=== PATIENT | male | born 1985 | race Caucasian/White ===

== ENCOUNTER 2016-12-31 21:35 | Emergency (ER) ==
[2016-12-31 21:39] VITALS: BP 113/70; TEMP 96.4; BMI 22.5
[2016-12-31] MEDS ORDERED: DILAUDID 2 MG/ML SYRINGE IM STA (21:54)
[2016-12-31] MEDS ORDERED: TORADOL IM STA (21:54)
[2016-12-31] MEDS ORDERED: BENADRYL IM STA (21:54)
[2016-12-31] MEDS ORDERED: PHENERGAN 25 MG/ML VIAL IM STA (21:54)
--- NOTE | 2016-12-31 22:17 | CT ---
EXAM: CT scan brain without contrast HISTORY: Headache COMPARISON: None. FINDINGS: Contiguous axial images obtained from the skull base to the convexities without contrast utilizing 5-mm collimation. Sagittal and coronal reconstructions were imaged and reviewed.. The ve ntricles and CSF spaces are within normal limits. There are no acute intracranial findings. Visual ized paranasal sinuses and mastoid air cells are clear. The calvarium is intact. IMPRESSION: No acute intracranial findings.
--- NOTE | 2016-12-31 22:25 | ED.PDOC ---
General ED Provider: Dr. ZEKE BANKS-ER Chief Complaint: Headache Stated Complaint: shena got a migraine--shena had them since i was a child Time Seen by Physician: 21:40 Mode of Arrival: Wheelchair Information Source: Patient, Family Exam Limitations: No limitations Nursing and Triage Documentation Reviewed and Agree: Yes Neurological Complaint Exam - Headache Complaint/Exam Onset: Gradual Duration: several hours Symptoms Are: Still present Timing: Constant Worst Headache Ever: No Initial Severity: Mild Current Severity: Mild Location: Diffuse Character: Reports: Dull, Throbbing, Typical headache, Migraine Aggravating: Reports: Bright lights Alleviating: Reports: None Associated Signs and Symptoms: Reports: Nausea, Vomiting. Denies: Dizziness, Seizure, Sinus pressure, Fever, Neck pain, Neck stiffness, Decreased LOC, Visual changes Related History: Reports: Similar episode. Denies: Recent trauma, Remote trauma Related Surgical History: Reports: None SAH Risk Factors: Reports: None Meningitis Risk Factors: Reports: None SDH Risk Factors: Reports: Male Temporal Arteritis Risk Factors: Reports: Normal Head CT Within Last 12 Months: No Fundoscopic Exam: Present: Normal Findings Papilledema Present: No Temporal Artery Tenderness: Present: None Sinus Tenderness: Present: None TMJ Tenderness: Present: None Glascow Coma Scale (see protocol): 15 Meningeal Signs Positive: No Pain on Passive Flexion-Positive Kernig's: No ROM Limited In: No Limitiations Focal Weakness: Present: None Focal Sensory Loss: Present: None Gait: Normal Nystagmus Present: No Gag Reflex Present: Yes [id number]: Normal Findings Romberg Test Positive: No Babinski Sign: Negative Right, Negative Left Heel to Toe Normal: Yes Differential Diagnoses: Migraine Review of Systems - Review Of Systems Constitutional: Reports: No symptoms Eyes: Reports: No symptoms Ears, Nose, Mouth, Throat: Reports: No symptoms Respiratory: Reports: No symptoms Cardiac: Reports: No symptoms GI: Reports: Nausea, Vomiting : Reports: No symptoms Musculoskeletal: Reports: No symptoms Skin: Reports: No symptoms Neurological: Reports: Headache Endocrine: Reports: No symptoms Hematologic/Lymphatic: Reports: No symptoms All Other Systems: Reviewed and Negative Past Medical History - Past Medical History Previously Healthy: Yes Endocrine: Reports: None Cardiovascular: Reports: None Respiratory: Reports: None Hematological: Reports: None Gastrointestinal: Reports: None Genitourinary: Reports: None Neuro/Psych: Reports: Migraine Musculoskeletal: Reports: None Cancer: Reports: None - Surgical History General Surgical History: Reports: None - Family History Family History: Reports: None - Social History Smoking Status: Current every day smoker, Heavy tobacco smoker Hx Substance Use: Yes (marijuana) Alcohol Screening: None - Immunizations Tetanus Shot up to Date: Yes Physical Exam - Physical Exam Appearance: Well-appearing, No pain distress, Well-nourished Pain Distress: Moderate Eyes: LANCE, EOMI, Conjunctiva clear ENT: Ears normal, Nose normal, Oropharynx normal Neck: Supple Respiratory: Airway patent, Breath sounds clear, Breath sounds equal, Respirations nonlabored Cardiovascular: RRR, Pulses normal, No rub, No murmur GI/: Soft Musculoskeletal: Normal strength, ROM intact, No edema, No calf tenderness Skin: Warm Neurological: Sensation intact, Motor intact, Reflexes intact, Cranial nerves intact, Alert, Oriented Psychiatric: Affect appropriate, Mood appropriate Interpretation - Radiology Interpretation Radiology Interpretation By: Radiologist Radiology Results: Negative Exam Interpreted: CT Scan Re-Evaluation - Re-Evaluation Time of Re-Evaluation: 22:40 Status: Improved Vital Signs Stable: Yes Pain Level: 1 Appearance: NAD Lungs: Clear Skin: Warm and Dry Neuro: Alert and Oriented X3 CV: RRR Critical Care Note - Critical Care Note Total Time (mins): 0 Course - Course Orders, Labs, Meds: Orders Category Date Time Status Diphenhydramine Inj [Benadryl] MEDS 12/31/16 21:54 Discontinued 25 mg IM ONCE STA Hydromorphone HCl/Pf [Dilaudid 2 mg/ml Syringe] MEDS 12/31/16 21:54 Discontinued 2 mg IM ONCE STA Ketorolac Tromethamine [Toradol] MEDS 12/31/16 21:54 Discontinued 60 mg IM ONCE STA Promethazine HCl [Phenergan 25 mg/ml Vial] MEDS 12/31/16 21:54 Discontinued 25 mg IM ONCE STA CT HEAD W/O CONTRAST Stat RADS 12/31/16 21:53 Completed Medications Discontinued Medications Generic Name Dose Route Start Last Admin Trade Name Freq PRN Reason Stop Dose Admin Diphenhydramine HCl 25 mg 12/31/16 21:54 12/31/16 22:07 Benadryl IM 12/31/16 21:55 25 mg ONCE STA Administration Hydromorphone HCl 2 mg 12/31/16 21:54 12/31/16 22:09 Dilaudid 2 Mg/Ml Syringe IM 12/31/16 21:55 2 mg ONCE STA Administration Ketorolac Tromethamine 60 mg 12/31/16 21:54 12/31/16 22:10 Toradol IM 12/31/16 21:55 60 mg ONCE STA Administration Promethazine HCl 25 mg 12/31/16 21:54 12/31/16 22:09 Phenergan 25 Mg/Ml Vial IM 12/31/16 21:55 25 mg ONCE STA Administration Vital Signs: Temp Pulse Resp BP Pulse Ox 12/31/16 21:36 96.4 F L 81 20 113/70 98 Departure - Departure Time of Disposition: 22:40 Disposition: HOME SELF-CARE Discharge Problem: Migraine headache Qualifiers: Migraine type: unspecified Status migrainosus presence: without status migrainosus Intractability: not intractable Qualifier Code: (G43.909) Migraine, unspecified, not intractable, without status migrainosus Instructions: Migraine Headache (ED) Condition: Good Pt referred to PMD for follow-up: Yes Additional Instructions: f/u with pcp Allergies/Adverse Reactions: Allergies No Known Drug Allergies Adverse Reaction (Verified 12/31/16 21:40) Home Medications: Ambulatory Orders 1 [No Reported Medications] 12/31/16 Disposition Discussed With: Patient, Family
== END 2016-12-31 23:00 | disposition home or self-care (01) ==
LOC: ED 21:35
DX: G43.909 Migraine, unspecified, not intractable, without status migrainosus (principal); F17.210 Nicotine dependence, cigarettes, uncomplicated
CPT/HCPCS: 96372; 99283